=== PATIENT | female | born 1995 | race Two or more races ===

== ENCOUNTER 2024-03-04 18:05 | Emergency (ER) | payer MEDICAID, SELFPAY ==
[2024-03-04 18:37] VITALS: BP 131/88; PULSE 90; RESP 19; TEMP 37.2; O2SAT 96; BMI 25.9
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
[2024-03-04] MEDS: ACETAMINOPHEN 500 MG TABLET 1000 MG PO (19:09)
== END 2024-03-04 22:15 | disposition home or self-care (01) ==
PROVIDERS: Emergency Provider Emergency Medicine; PCP Family Medicine
DX: S00.83XA Contusion of other part of head, initial encounter (principal); V43.52XA Car driver injured in collision with other type car in traffic accident, initial encounter; Y92.410 Unspecified street and highway as the place of occurrence of the external cause
CPT/HCPCS: 70150; 99283; A9270

== ENCOUNTER 2024-07-01 01:31 | Emergency (ER) | payer MEDICAID, SELFPAY ==
[2024-07-01 01:31] VITALS: BMI 28.7
[2024-07-01 01:39] VITALS: BP 131/83; PULSE 90; RESP 18; TEMP 36.8; O2SAT 98
--- NOTE | 2024-07-01 01:41 | PD.EDDENTL ---
ED Dental RME/HPI General Chief complaint: Dental/Oral/Throat Stated complaint: TOOTH PAIN Time Seen by Provider: 07/01/24 01:37 Arrival date/time: 07/01/24 01:31 29 year old female present to emergency room with c/o of right lower dental pain since . pt taken Tylenol with minimal discomfort. SEVERITY: Symptoms are described as being severe with limitations on activities of daily living CONTEXT: The patient is unable to identify any inciting events. DURATION/TIMING: The symptoms started approximately3 days ASSOCIATED SYMPTOMS: The patient is unable to identify any other associated symptoms. MODIFYING FACTORS: The patient is unable to identify any alleviating or aggravating symptoms. PERTINENT ROS: no fevers, no cough, no chest pain/shortness of breath no nausea,vomiting, diarrhea, no dizziness/headache no rash no loc/syncope episode REVIEW OF SYSTEMS: See History of Present Illness - with the exception of those mentioned in the history of present illness, all other systems reviewed and reported as negative GENERAL: In general the patient is awake, interactive, in an emergency department gurney. HEAD/EYES/EARS/NOSE/THROAT: right lower partial fracture , no airway obstruction no abscess or ludwigs normo-cephalic, atraumatic, mucus membranes are moist, anicteric, palpebral conjunctiva is pink, trachea is midline. CARDIOVASCULAR: regular rate and regular rhythm, no murmurs, heart sounds are not distant, strong pulses in all four extremities that are equal and symmetric bilateral upper and lower extremities, normal capillary refill. EXTREMITY: no tenderness to palpation over the long bones or large joints of the bilateral upper and lower extremities, no joint swelling, no joint erythema, no signs of trauma, no unilateral leg swelling and no peripheral edema. SKIN: warm, dry, well-perfused, no jaundice, no rash, no telangiectasias or petechia. PSYCH: calm, cooperative, no evidence of psychosis or agitation Related Data Previous Rx's ?Medication ?Instructions ?Recorded amoxicillin 875 mg-potassium 1 tab PO BID #14 tabs 07/01/24 clavulanate 125 mg tablet Allergies Allergy/AdvReac Type Severity Reaction Status Date / Time No Known Allergies Allergy Unknown Verified 03/04/24 18:09 Course Course Course Narrative: The Pt presents with c/f a suspected dental infection, though may also represent a simple dental ag. The Pt is afebrile and well appearing, without evidence of periapical abscess, ANUG, deep space neck infxn, Maurisio?s, or mastoiditis. No trismus or airway involvement. Discussed supportive care and recommended urgent follow up with a dentist. ? Augmentin x7d ? Urgent follow up with a dentist Quality Measures none Orders Category Date Time Status Amoxicillin/Pot Clav 875 [Augmentin 875] Med 07/01/24 01:42 Once 1 tab PO X1 ONE Ketorolac Inj [Toradol Inj] Med 07/01/24 01:42 Once 30 mg IM X1 ONE Vital Signs Vital signs: Vital Signs Temperature 98.2 F 07/01/24 01:39 Pulse Rate 90 07/01/24 01:39 Respiratory Rate 18 07/01/24 01:39 Blood Pressure 131/83 H 07/01/24 01:39 Pulse Oximetry (%) 98 07/01/24 01:39 Oxygen Delivery Method Room Air 07/01/24 01:39 Dental / Oral Patient data External records reviewed:: [facility] previous records Clinical information provided by:: patient Social determinants that could affect healthcare access:: none Patient has the following chronic illnesses:: n/a How is presenting disease/condition affected by chronic disease/condition?: no chronic disease Evaluation data The following diagnostics were reviewed and interpreted by me:: other (specify) (na) Lab and/or radiology exams considered but not ordered:: na Interpretation Summary: na Medications / Prescriptions Medications or Prescriptions considered but not ordered:: na Medication administrations:: Medication Administration History Amoxicillin/Clavulanate Potassium (Amoxicillin/Pot Clav 875 Tablet) 1 tab PO X1 ONE Stop: 07/01/24 01:43 Ketorolac Tromethamine (Ketorolac Inj 60 Mg/2 Ml Vial) 30 mg IM X1 ONE Stop: 07/01/24 01:43 as stated above Consultations Consultation(s) initiated? (list below): No Diagnosis Most likely diagnosis given after review of the tests above:: dental pain Admission Indicated Admission indicated?: not indicated Admission Request Was there a request for admission?: No Disposition Plan Disposition Plan: Discharge Discharge Attestation Discharge Attestation: The patient and all family members were given an opportunity to ask questions and understood the discharge instructions. Discharge instructions specifically effects, indications for sooner follow up or return to the emergency department, and the expected course of current diagnosis. Patient condition: Stable Discharge Plan Plan Patient Disposition: HOME (Self Care) Prescriptions/Referrals Prescriptions/Med Rec: New amoxicillin-pot clavulanate 875-125 mg tablet 1 tab PO BID Qty: 14 0RF Problem List Clinical Impression: Toothache Patient/Caregiver Discharge Instructions Education Materials: ED Dental Pain Print Language: Azeri Stand Alone Forms: [place] Award Info., Patient Portal Info Letter
[2024-07-01] MEDS: AMOXICILLIN/POT CLAV 875 TABLET 1 TAB PO (02:12)
== END 2024-07-01 02:30 | disposition home or self-care (01) ==
LOC: SERX 01:53
PROVIDERS: Emergency Provider Emergency Medicine; PCP Family Medicine
DX: K08.89 Other specified disorders of teeth and supporting structures (principal)
CPT/HCPCS: 99282; A9270

== ENCOUNTER 2024-10-19 21:43 | Emergency (ER) | payer MEDICAID, SELFPAY ==
[2024-10-19 21:44] VITALS: BMI 32.9
[2024-10-19 22:11] VITALS: BP 117/75; PULSE 78; RESP 18; TEMP 37; O2SAT 98
--- NOTE | 2024-10-19 22:16 | XR_ITS ---
Examination: Venous duplex lower extremity sonogram, bilateral. Date and time of exam: October 19, 2024 1035 hrs. Indications: Left leg swelling beginning 2 weeks ago Technique: Multiple sonographic images of the deep venous system have been obtained. B-mode/2-D grayscale imaging of vascular structures and Doppler spectral analysis (waveforms) and color performed Both legs are examined. Findings: Deep venous systems do not demonstrate abnormal echogenicity. All visualized deep veins exhibit compressibility. All visualized deep veins exhibit augmentation. Impression: Negative for deep vein thrombosis
--- NOTE | 2024-10-19 22:16 | PD.EDEXREM ---
ED Extremity Problem RME/HPI General Chief complaint: Extremity Problem,Nontraumatic Stated complaint: LEFT LEG SWOLLEN MORE THAN RIGHT Time Seen by Provider: 10/19/24 21:52 Arrival date/time: 10/19/24 21:43 RME / HPI RME / HPI Narrative: 29-year-old female patient came in for evaluation regarding bilateral lower leg swelling, the left lower extremity is more swollen than the right. Patient is worried of possible DVT. Patient is 6 para 5, about 36 weeks . Denies any abdominal pain denies any vaginal bleeding denies spotting denies any other complaints. Patient told me that her baby is kicking as usual. Related Data Previous Rx's ?Medication ?Instructions ?Recorded amoxicillin 875 mg-potassium 1 tab PO BID #14 tabs 07/01/24 clavulanate 125 mg tablet Allergies Allergy/AdvReac Type Severity Reaction Status Date / Time No Known Allergies Allergy Unknown Verified 03/04/24 18:09 Review of Systems Review of Systems Narrative Review of Systems: Review of system reviewed and within normal limits except mentioned in HPI ED Exam Narrative Physical exam: VITAL SIGNS: Reviewed. GENERAL APPEARANCE: Alert and interactive, follows commands, no acute distress, HEAD AND FACE: Non-traumatic. ENT: PERRL, pink conjunctivitis, eyelid no trauma, Mucous membrane moist. NECK: Supple, nontender, no nuchal rigidity. CHEST: No tenderness, no crepitus, no paradoxical movement, no retractions. LUNGS: Clear, well ventilated, symmetric, no rales, no wheezing, no ronchi, no stridor, good breath sounds bilaterally. HEART: Regular rate, regular rhythm, no murmur, no gallops. ABDOMEN: Soft, positive bowel sounds, nondistended, no guarding, nontender, no rebound, no masses, RECTAL: Deferred. GENITAL: Deferred. NEUROLOGICAL: Gross motor function intact sensory function intact, Appropriate for age. MUSCULOSKELETAL: low back nontender, full range of motion. EXTREMITIES: Bilateral lower extremity swelling, nontender no redness distal neurovascular status intact bilateral. Full range of motion. SKIN: Color pink, dry, no rash, no lacerations, no abrasions, no contusions. LYMPHATICS: Deferred. Course Quality Measures none Orders Category Date Time Status heart tone auscultation ONCE Care 10/19/24 22:18 Completed US venous doppler LE BI Stat Exams 10/19/24 22:16 Completed Vital Signs Vital signs: Vital Signs Temperature 98.6 F 10/19/24 22:11 Pulse Rate 78 10/19/24 22:11 Respiratory Rate 18 10/19/24 22:11 Blood Pressure 117/75 10/19/24 22:11 Pulse Oximetry (%) 98 10/19/24 22:11 Oxygen Delivery Method Room Air 10/19/24 22:11 Extremity Problem MDM Narrative MDM Narrative:: 4-year-old and 3 months old female patient was brought in for evaluation regarding top of the head injury. Patient was jumping in the bed, and hit the head resulting into pain, described as dull ache, severity moderate. Patient family was worried because patient got dizzy after the incident. No vomiting no loss of consciousness patient is ambulatory. Incident happened more than an hour ago. Ultrasound of the lower extremities negative for DVT. Patient advised to see was noted to be 147, patient stable for discharge home. I do not suspect any sign of preeclampsia at this time blood pressure is normal. Patient is not having any neck pain or headache. Patient data External records reviewed:: None Clinical information provided by:: none Social determinants that could affect healthcare access:: none Patient has the following chronic illnesses:: None How is presenting disease/condition affected by chronic disease/condition?: no chronic disease Evaluation data The following diagnostics were reviewed and interpreted by me:: radiology exam(s) Lab and/or radiology exams considered but not ordered:: None Interpretation Summary: Ultrasound bilateral lower extremity negative for DVT Medications / Prescriptions Medications or Prescriptions considered but not ordered:: None Medication administrations:: None Consultations Consultation(s) initiated? (list below): No Diagnosis Extremity Problem Differential Diagnosis: deep venous thrombosis of upper extremity, lower extremity edema and deep vein thrombosis of lower extremity Most likely diagnosis given after review of the tests above:: Bilateral lower extremity edema secondary to term Admission Indicated Admission indicated?: not indicated Admission Request Was there a request for admission?: No Disposition Plan Disposition Plan: Discharge Discharge Attestation Discharge Attestation: The patient was given an opportunity to ask questions and understood the discharge instructions. Discharge instructions specifically effects, indications for sooner follow up or return to the emergency department, and the expected course of current diagnosis. Patient condition: Stable Discharge Plan Plan Patient Disposition: HOME (Self Care) Discharge Disposition comment: Stable Prescriptions/Referrals Prescriptions/Med Rec: No Action amoxicillin-pot clavulanate 875-125 mg tablet 1 tab PO BID Qty: 14 0RF Referrals: Clayton Best MD [Primary Care Provider] - In 1 week Problem List Clinical Impression: Lower extremity edema, and not yet delivered in third trimester Patient/Caregiver Discharge Instructions Discharge Activity: activity as tolerated Education Materials: ED Leg Swelling in Both Legs Additional Instructions: Thank you for the opportunity for serving you today. You are stable for discharged . You are advised to: Follow-up with your PCP in 1 to 2 days Return to ED for worsening of symptoms Elevate your legs as needed, you can also wear compression stocking in the morning and remove it during the night Print Language: Guyanese Stand Alone Forms: [place] Award Info., Patient Portal Info Letter PA/DARSHANA Supervising Physician PA/DARSHANA Supervising Physician: MD Buddy
== END 2024-10-19 23:39 | disposition home or self-care (01) ==
PROVIDERS: Emergency Provider Emergency Medicine; PCP Family Medicine
DX: O12.03 Gestational edema, third trimester (principal); Z3A.36 36 weeks gestation of pregnancy
CPT/HCPCS: 93970; 99283

== ENCOUNTER 2024-11-14 09:39 | Inpatient (IN) | payer MEDICAID, SELFPAY ==
--- NOTE | 2024-11-12 09:17 | ESHP_ITS ---
RE: LYNNETTE ZHAO : 1995 DATE OF ADMISSION: 11/10/2024 HISTORY OF PRESENT ILLNESS: This is a 29-year-old 6, para 5-0-0-5 with due date of 11/06/2024 with intrauterine at 41 weeks and 1 days on 11/14/2024, who presents for induction of labor for post dates. The patient denies any leaking or bleeding. She reports normal movement. She reports occasional contractions. Her care was complicated by iron deficiency anemia. ALLERGIES: NO KNOWN DRUG ALLERGIES. MEDICATIONS: 1. multivitamin 1 p.o. daily. 2. Ferrous sulfate 325 mg 1 p.o. daily. PAST MEDICAL HISTORY: Iron deficiency anemia, abnormal Pap smear, gallstones. FAMILY HISTORY: Daughter has autism, colon cancer, and diabetes. OBSTETRIC HISTORY: In 2012, 40-week, normal vaginal delivery, 7 pounds 6 ounces male. No complications. In 2015, 40-week, normal vaginal delivery, 7 pounds 8 ounces male. Autism. In 41-week, normal vaginal delivery, 7 pounds 6 ounces female. No complications. In 06/2008, 41-week normal vaginal delivery, 7 pounds 8-ounce female. In 09/2021, 40-week normal vaginal delivery, 7 pounds 7 ounces female. No complications. PAST SURGICAL HISTORY: Cholecystectomy. REVIEW OF SYSTEMS: She denies any chest pain, palpitations, cough, fever, shortness of breath, or lower extremity pain. She denies any headache, change in vision or right upper quadrant pain. PHYSICAL EXAMINATION: VITAL SIGNS: Blood pressure 119/69, heart rate 89, respirations 18, temperature 98.6, weight 186 pounds. HEENT: Oropharynx and sclerae are clear. LUNGS: Clear to auscultation bilaterally. HEART: Regular rate and rhythm. ABDOMEN: Gravid, term size consistent with estimated weight 7 3/4 pounds. PELVIC: See RN notes. EXTREMITIES: Nontender. SKIN: No gross rashes or lesions. NEUROLOGIC: No focal deficit. ASSESSMENT AND PLAN: Intrauterine at 41 weeks 1 day on 11/14/2024. Induction of labor. Anticipates spontaneous vaginal delivery. Informed consent was obtained. The patient was made aware of the risks, complications, alternatives, and benefits of operative vaginal delivery and delivery. Agrees with these modes of delivery if indicated. DT: 14:50:35 TT: 15:27:00 Ref: [id number] - TID: [id number] MTDD
[2024-11-14] VITALS (23 sets, daily range): BP systolic 106–140; BP diastolic 59–77; PULSE 73–95; RESP 20; TEMP 36.1–36.9; O2SAT 89–99; BMI 32.1
[2024-11-14 10:48] LABS: Basophils # (Auto) 0.1 Thou/mm3 (0.0-0.2); Basophils % (Auto) 1 % (0-2.5); Eosinophils # (Auto) 0.2 Thou/mm3 (0.0-0.5); Eosinophils % (Auto) 3 % (0-10); Hematocrit 35.4 % (36.0-46.0); Hemoglobin 11.9 g/dL (12.0-16.0); Immature Granulocytes Auto 0.03 Thou/mm3 (0.00-0.00); Lymphocytes # (Auto) 1.6 Thou/mm3 (1.0-4.8); Lymphocytes % (Auto) 19 % (10-50); Mean Corpuscular HGB Conc 33.6 g/dl (31.0-37.0); Mean Corpuscular Hemoglobin 27.4 pg (25.0-35.0); Mean Corpuscular Volume 82 fL (80-100); Monocytes # (Auto) 0.5 Thou/mm3 (0.0-0.8); Monocytes % (Auto) 5 % (0-12); Neutrophils # (Auto) 6.0 Thou/mm3 (1.8-7.7); Neutrophils % (Auto) 72 % (37-80); Nucleated Red Blood Cell # 0.00 Thou/mm3 (0.00-0.00); Nucleated Red Blood Cell % 0 /100 WBC (0); Platelet Count 224 Thou/mm3 (140-440); RDW Standard Deviation 41.7 fL (36.4-46.3); Red Blood Count 4.34 Miln/mm3 (4.00-5.20); White Blood Count 8.4 Thou/mm3 (3.6-11.0)
[2024-11-14 11:12] LABS: Amphetamine/Metham Scrn,Ur OB Negative (Negative); Benzoylecgonine Screen, Ur OB Negative (Negative); Opiate Screen,Urine OB Negative (Negative); THC Screen,Urine OB Negative (Negative)
[2024-11-14 11:30] LABS: Syphilis Nonreactive (Nonreactive)
[2024-11-14] MEDS: fentaNYL CIT INJ 50 mCg/ML AMP 2ML 100 MCG IVP (14:40)
[2024-11-14] MEDS: RINGERS LACTATED 1000 ML 1,000 ML 100 ML IV (14:43)
[2024-11-14] MEDS: IBUPROFEN TAB 400 MG TABLET 800 MG PO (17:33)
--- NOTE | 2024-11-14 20:56 | PC.NURSE ---
2039:Pt. transferred to RM [id number] via ambulation with in open crib with belongings, accompanied by dry pan charger and significant other.
[2024-11-14 22:40] LABS: Basophils # (Auto) 0.0 Thou/mm3 (0.0-0.2); Basophils % (Auto) 0 % (0-2.5); Eosinophils # (Auto) 0.0 Thou/mm3 (0.0-0.5); Eosinophils % (Auto) 0 % (0-10); Hematocrit 32.8 % (36.0-46.0); Hemoglobin 11.1 g/dL (12.0-16.0); Immature Granulocytes Auto 0.07 Thou/mm3 (0.00-0.00); Lymphocytes # (Auto) 1.4 Thou/mm3 (1.0-4.8); Lymphocytes % (Auto) 10 % (10-50); Mean Corpuscular HGB Conc 33.8 g/dl (31.0-37.0); Mean Corpuscular Hemoglobin 27.7 pg (25.0-35.0); Mean Corpuscular Volume 82 fL (80-100); Monocytes # (Auto) 0.7 Thou/mm3 (0.0-0.8); Monocytes % (Auto) 5 % (0-12); Neutrophils # (Auto) 11.1 Thou/mm3 (1.8-7.7); Neutrophils % (Auto) 83 % (37-80); Nucleated Red Blood Cell # 0.00 Thou/mm3 (0.00-0.00); Nucleated Red Blood Cell % 0 /100 WBC (0); Platelet Count 205 Thou/mm3 (140-440); RDW Standard Deviation 41.5 fL (36.4-46.3); Red Blood Count 4.01 Miln/mm3 (4.00-5.20); White Blood Count 13.3 Thou/mm3 (3.6-11.0)
[2024-11-15] MEDS: BENZO/LANO/ALOE (Dermoplast) 60 GM CAN 1 SPRAY TOP (00:26)
[2024-11-15 00:30] VITALS: BP 112/72; PULSE 87; RESP 20; TEMP 36.8; O2SAT 97
[2024-11-15 04:40] VITALS: BP 94/57; PULSE 76; RESP 16; TEMP 36.7; O2SAT 97
--- NOTE | 2024-11-15 05:52 | OBDSUM_ITS ---
Data (Ruth) Data Hx Section: No : 6 Term: 4 : 0 Livin Abortions: Spontaneous & Theraputic: 0 Delivery Data (Ruth) Labor Data Initiation of labor: Induction Induction/Augmentation Agent: Cervidil ROM date: 11/14/24 ROM time: 16:54 Amniotic membrane rupture type: Artificial Amniotic fluid description: Clear Delivery Data EDC: 11/06/24 EDC calculated by:: LMP/early US confirmation delivery date: 11/14/24 delivery time: 16:57 Gestational age (weeks): 41 Gestational age (days): 1 Placenta delivery date: 11/14/24 Placenta delivery time: 17:03 Delivered by: Geiling Delivery nurse: Lydia Whitt nurse: Hannah Boles Skip Hoist Engineer at delivery: No Delivery Method Delivery method: Normal Vaginal Delivery Presentation: Vertex Anesthesia Type Anesthesia Type: None Placenta Placenta delivery description: Spontaneous Cord blood sent to lab: Yes cord blood collection: Cord Blood Type Episiotomy Episiotomy description: None EBL Estimated blood loss (ml): 150 Umbilical Cord cord description: 3 Vessels and Nuchal Cord Complications Complications: None Transfer Data (Ruth) Data 's gender: Male Identification band number: [id number] weight (gms): 7 lb 5.639 oz Weight (pounds): 7 lbs and 5.6 ozs length: 21 in 1 minute: 8 5 minutes: 9
--- NOTE | 2024-11-15 07:36 | ESPR_ITS ---
RE: LYNNETTE ZHAO : 1995 DATE OF SERVICE: 11/15/2024 S: day 1: The patient denies any problem or complaints. She is voiding. She is ambulating. She tolerated diet. She is passing flatus. She denies any excessive vaginal bleeding. She denies any dizziness or lightheadedness. She denies any chest pain, palpitations, shortness of breath or lower extremity pain. O: Vital Signs: Blood pressure 94/57, heart rate 76, respirations 16, temperature is 98.1. Lungs: Clear to auscultation bilaterally. Heart: Regular rate and rhythm. Abdomen: Nondistended. Fundus is firm. Extremities: Nontender. LABORATORY DATA: Hemoglobin pre-delivery is 11.9, post-delivery is 11.1. ASSESSMENT: day 1 status post spontaneous vaginal delivery. PLAN: Discharge home. Discharge instructions given. Follow up in the office in six weeks. DT: 05:41:36 TT: 07:34:00 Ref: [id number] - TID: [id number]
[2024-11-15] MEDS: HYDROcodone/APAP 5/325 TABLET 1 TAB PO (08:13)
[2024-11-15 09:40] VITALS: BP 111/70; PULSE 77; RESP 16; TEMP 36.5; O2SAT 97
[2024-11-15 11:58] VITALS: BP 111/72; PULSE 84; RESP 16; TEMP 36.8; O2SAT 98
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
[2024-11-15 16:00] VITALS: BP 114/75; PULSE 81; RESP 16; TEMP 36.3; O2SAT 98
== END 2024-11-15 17:55 | disposition home or self-care (01) | DRG 560 ==
LOC: S4SX 17:07 → S4NX 20:52
PROVIDERS: Admitting Provider Specialist; Visit Provider Specialist
DX: O48.0 Post-term pregnancy (principal); Z37.0 Single live birth; Z3A.41 41 weeks gestation of pregnancy; O99.02 Anemia complicating childbirth; D50.9 Iron deficiency anemia, unspecified; O69.81X0 Labor and delivery complicated by cord around neck, without compression, not applicable or unspecified; Z90.49 Acquired absence of other specified parts of digestive tract
CPT/HCPCS: 36415; 59409; 80307; 85025; 86780; 86850; 86900; 86901; 94762; J3010; J7120; A9270